=== PATIENT | male | born 1950 | race Caucasian/White ===

== ENCOUNTER → 2018-06-26 15:58 | Outpatient (CLI) | payer MEDICARE, SELFPAY ==
--- NOTE | 2018-06-26 | DI.RAD.S_ITS ---
PROCEDURE: XR CHEST 2V INDICATIONS: RIGHT RIB PAIN POST FALL TECHNIQUE: 2 views of the chest were acquired. COMPARISON: [facility], , CHEST 2 VIEW, 07/15/2009, 14:05. FINDINGS: Surgical changes and devices: None. Lungs and pleura: Mild focal air space opacities are present at the medial left lung base. The lungs are otherwise clear. No pleural effusion or pneumothorax. Mediastinum: Mediastinal contours are normal. Heart size is normal. Bones and chest wall: No suspicious bony abnormalities. Soft tissues appear unremarkable. IMPRESSION: 1. Medial left basilar pulmonary opacities. Differential considerations include aspiration, atelectasis, and infection. 2. No rib fractures visualized; however if there is high clinical suspicion for rib fractures, dedicated rib views may be helpful. Dictated by: Yane Cuello M.D. on 06/26/2018 at 17:08 Approved by: Yane Cuello M.D. on 06/26/2018 at 17:09
== END ==
PROVIDERS: PCP Family Medicine; Visit Provider Family Medicine
DX: R07.81 Pleurodynia (principal)
CPT/HCPCS: 71046

== ENCOUNTER → 2019-01-15 10:51 | Outpatient (CLI) | payer MEDICARE, SELFPAY | PROVIDERS: PCP Family Medicine; Visit Provider Orthopaedic Surgery | DX: Z01.810 Encounter for preprocedural cardiovascular examination (principal) | CPT/HCPCS: 93005 ==

== ENCOUNTER → 2022-04-16 15:30 | Outpatient (CLI) | payer MEDICARE, SELFPAY ==
--- NOTE | 2022-04-16 15:32 | DI.RAD.S_ITS ---
PROCEDURE: XR KNEE RT 3V INDICATIONS: M25.561 TECHNIQUE: Three views of the knee were acquired. COMPARISON: [facility], , KNEE 3V RIGHT, 11/08/2010, 14:22. FINDINGS: Bones: Mild medial compartment joint space loss and mild tricompartment marginal spurring. There is moderate lateral patellofemoral compartment joint space loss and trace lateral subluxation. Soft tissues: Trace suprapatellar joint effusion. No unusual soft tissue calcifications. IMPRESSION: 1. 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 Mild progression since the prior study. Dictated by: Elizabeth Williamson M.D. on 04/16/2022 at 16:30 Approved by: Elizabeth Williamson M.D. on 04/16/2022 at 16:32
== END ==
PROVIDERS: PCP Family Medicine; Referring Provider Family Medicine; Visit Provider Family Medicine
DX: M25.561 Pain in right knee (principal)
CPT/HCPCS: 73562

== ENCOUNTER → 2022-11-01 11:58 | Outpatient (ROUT) | payer MEDICARE, SELFPAY ==
[2022-11-01 12:41] LABS: Influenza A - CEPHEID Flu A NEGATIVE (NEGATIVE); Influenza B - CEPHEID Flu B NEGATIVE (NEGATIVE); Respiratory Syncytial Virus Negative (Negative)
[2022-11-01 12:42] LABS: COVID-19 CEPHEID 4-PLEX PCR Negative (Negative)
== END ==
PROVIDERS: PCP Family Medicine; Visit Provider Family Medicine
DX: R05.9 Cough, unspecified (principal); R50.9 Fever, unspecified; J32.9 Chronic sinusitis, unspecified
CPT/HCPCS: 0241U

== ENCOUNTER → 2022-11-15 11:08 | Outpatient (CLI) | payer MEDICARE, SELFPAY ==
--- NOTE | 2022-11-15 | DI.RAD.S_ITS ---
PROCEDURE: XR CHEST 2V INDICATIONS: Shortness of breath, Cough TECHNIQUE: 2 views of the chest were acquired. COMPARISON: [facility], , CHEST 2 VIEW, 07/15/2009, 14:05. [facility], JEFF, XR CHEST 2V, 06/26/2018, 16:07. FINDINGS: Surgical changes and devices: None. Lungs and pleura: Lungs are clear. No pleural effusions or pneumothorax. Mediastinum: Mediastinal contours are normal. Heart size is normal. Bones and chest wall: No suspicious bony abnormalities. There is a right shoulder arthroplasty. Soft tissues appear unremarkable. IMPRESSION: No acute cardiopulmonary disease. Dictated by: Burak Ramirez M.D. on 11/15/2022 at 14:15 Approved by: Burak Ramirez M.D. on 11/15/2022 at 14:23
== END ==
PROVIDERS: PCP Family Medicine; Referring Provider Family Medicine; Visit Provider Family Medicine
DX: R05.1 Acute cough (principal); R06.02 Shortness of breath
CPT/HCPCS: 71046

== ENCOUNTER → 2024-08-24 10:55 | Outpatient (CLI) | payer MEDICARE, SELFPAY ==
[2024-08-24 11:57] LABS: Add Manual Diff / Slide Review NO; Basophils Absolute Auto 100 /uL (0-100); Basophils Percent Auto 2.5 % (0-2); Eosinophils Absolute Auto 400 /uL (0-450); Eosinophils Percent Auto 7.8 % (2-4); Hematocrit 22.9 % (41-53); Lymphocytes Absolute Auto 800 /uL (1100-4500); Lymphocytes Percent Auto 16.9 % (25-40); Mean Corpuscular HGB Conc 30.6 % (30-36); Mean Corpuscular Hemoglobin 19.6 PG (26-34); Mean Corpuscular Volume 63.9 fL (80-100); Monocytes Absolute Auto 900 /uL (0-900); Monocytes Percent Auto 19.7 % (3-14); Neutrophils Absolute Auto 2400 /uL (1500-7000); Neutrophils Percent Auto 53.1 % (50-75); Platelet Count 125 X10^3/uL (150-400); Red Blood Cell Count 3.59 X10^6/uL (4.5-5.9); Red Cell Distribution Width 23.5 % (11.6-14.8); White Blood Cell Count 4.5 X10^3/uL (4.5-11.0)
[2024-08-24 12:13] LABS: Alanine Aminotransferase 30 IU/L (<50); Albumin 3.8 g/dL (3.5-5.0); Albumin Globulin Ratio 1.2 (1.0-2.8); Alkaline Phosphatase 143 U/L (38-126); Aspartate Aminotransferase 54 IU/L (17-59); BUN Creatinine Ratio 18.9 (6-22); Bilirubin Total 2.4 mg/dL (0.2-1.3); Blood Urea Nitrogen 14 mg/dL (9-20); Carbon Dioxide 21 mmol/L (22-32); Chloride 107 mmol/L (98-107); Estimated Glomerular Filt Rate > 60 mL/min (>60); Globulin 3.2 g/dL (1.7-4.1); Glucose 116 mg/dL (80-110); HEMOLYSIS < 15 (0-50); Potassium 3.8 mmol/L (3.4-5.1); Sodium 138 mmol/L (137-145)
[2024-08-24 13:27] LABS: Anisocytosis 3+
[2024-08-24 13:29] LABS: Microcytosis 2+; Schistocytes 1+; Target Cells 2+
[2024-08-24 14:41] LABS: MRSA (Nasal) PCR NOT DETECTED (Not Detect)
== END ==
PROVIDERS: PCP Family Medicine; Referring Provider Family Medicine; Visit Provider Family Medicine
DX: Z01.811 Encounter for preprocedural respiratory examination (principal); Z13.6 Encounter for screening for cardiovascular disorders; Z22.322 Carrier or suspected carrier of Methicillin resistant Staphylococcus aureus
CPT/HCPCS: 36415; 80053; 85025; 87797

== ENCOUNTER → 2024-09-11 14:42 | Outpatient (CLI) | payer MEDICARE, SELFPAY ==
[2024-09-11 15:41] LABS: Hematocrit 23.3 % (41-53); Mean Corpuscular HGB Conc 29.9 % (30-36); Mean Corpuscular Hemoglobin 19.6 PG (26-34); Mean Corpuscular Volume 65.5 fL (80-100); Platelet Count 147 X10^3/uL (150-400); Red Blood Cell Count 3.55 X10^6/uL (4.5-5.9); Red Cell Distribution Width 24.1 % (11.6-14.8); White Blood Cell Count 4.8 X10^3/uL (4.5-11.0)
[2024-09-11 15:56] LABS: Reticulocyte Count, Percent 1.9 % (0.9-2.6)
[2024-09-11 16:27] LABS: HEMOLYSIS < 15 (0-50); Iron 22 ug/dL (49-181)
[2024-09-11 16:30] LABS: Lactate Dehydrogenase 223 U/L (120-246)
[2024-09-11 16:39] LABS: Percent Iron Saturation 5 % (20-50); Total Iron Binding Capacity 450 ug/dL (261-462); Transferrin 358 mg/dL (206-381)
[2024-09-11 16:42] LABS: Neutrophils Absolute Manual 1968 /uL (3000-5900); Total Cells Counted 100
[2024-09-11 16:43] LABS: Anisocytosis 2+
[2024-09-11 16:46] LABS: Microcytosis 2+; Target Cells 2+
[2024-09-11 17:04] LABS: Ferritin 11 ng/mL (18-464)
[2024-09-13 08:12] LABS: Haptoglobin 66 mg/dL (34-355)
== END ==
LOC: LAB 14:43
PROVIDERS: PCP Family Medicine; Referring Provider Family Medicine; Visit Provider Family Medicine
DX: D50.9 Iron deficiency anemia, unspecified (principal); R17 Unspecified jaundice; Z87.891 Personal history of nicotine dependence
CPT/HCPCS: 36415; 82728; 83010; 83021; 83540; 83550; 83615; 85025; 85045

== ENCOUNTER 2024-10-08 13:01 | Day surgery (SDC) | payer MEDICARE, SELFPAY ==
--- NOTE | 2024-10-08 | PATH_ITS ---
[facility] Accession Number: [id number] No. of containers..05 Tissue . 01 Material submitted: . PART A: duodenum - DUODENUM PART B: stomach - ANTRUM, STOMACH PART C: gastrointestinal site - PROXIMAL GASTRIC MUCOSA PART D: esophagus - DISTAL ESOPHAGUS PART E: colon - SIGMOID POLYPS . 01 Diagnosis: A. DUODENUM: Duodenal mucosa with mild active inflammation. No evidence of celiac disease. See comment. . B. ANTRUM: Gastric mucosa with reactive foveolar hyperplasia. See comment. No Helicobacter pylori organisms identified on H/E slide. No intestinal metaplasia, dysplasia, or malignancy. . C. PROXIMAL GASTRIC MUCOSA: Gastric mucosa with minimal chronic nonspecific inflammation. No Helicobacter pylori organisms identified on H/E slide. No intestinal metaplasia, dysplasia, or malignancy. . D. DISTAL ESOPHAGUS: Squamocolumnar junctional mucosa with goblet cell (Thomson's) metaplasia. No dysplasia or malignancy. See comment. . E. SIGMOID COLON POLYPS: Tubular adenoma. Hyperplastic polyp. [facility] 10/12/2024 1251 Local . 01 Comment: A. The features raise a differential including peptic duodenitis, peptic-induced injury, or idiopathic inflammation, among other possibilities. . B. Foveolar hyperplasia can represent a reactive process due to recurrent mucosal injury. It may also be seen as a polypoid appearance on endoscopy and may represent an early gastric hyperplastic polyp. Clinical correlation is recommended. . D. 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 Correlation with endoscopic appearance is recommended. . 01 Electronically signed: . Sarai Dean MD, Pathologist NPI- [id number] . 01 Gross description: . A. Received in formalin with two identifiers and BX duodenum, are three pool soft tissue fragments, 0.1-0.2 cm in greatest dimension, submitted in A1. B. Received in formalin with two identifiers and antrum stomach, are two pool soft tissue fragments, 0.3 cm each in greatest dimension, submitted in B1. C. Received in formalin with two identifiers and proximal gastric mucosa, is a single pool soft tissue fragment, 0.4 cm in greatest dimension, submitted in C1. D. Received in formalin with two identifiers and distal esophagus, are two pool soft tissue fragments, 0.3 and 0.4 cm in greatest dimension, submitted in D1. E. Received in formalin with two identifiers and sigmoid polyps, are multiple pool to brown soft tissue fragments aggregating to 0.8 x 0.7 x 0.2 cm. Filtered and submitted entirely in E1. ([id number]) /MRV 10/09/2024 1745 Local . 01 Pathologist provided ICD-10: K29.80, K29.70, K29.30, K22.70, D12.5 . 01 CPT . 168213, 261551, 259316, 249433, 974162 Specimen Comment: A courtesy copy of this report has been sent to [phone] Performed at: [address] [facility] [address], [place], [place] [id number] MD Cisco Montes MD Phone: [phone]
[2024-10-08 14:10] VITALS: BP 138/67; PULSE 66; RESP 16; TEMP 37.2; O2SAT 99
[2024-10-08] MEDS: LACTATED RINGERS 1,000 ML 42 ML IV ×2 (14:15→15:29)
--- NOTE | 2024-10-08 14:52 | PM.PREOP ---
Pre-operative Note COVID-19 COVID-19 status: Not tested Interval Note History & Physical reviewed/Exam performed by Physician: Yes Changes to H&P: No ASA Class (for procedural sedation): II
--- NOTE | 2024-10-08 15:25 | SUR.OPER ---
EGD 1508- 1519 COLON STARTED AT 1523
--- NOTE | 2024-10-08 15:48 | PM.OP.EC ---
Operative Date/Time/Diagnoses Date of procedure: 10/08/24 Time of procedure: 15:49 Pre-op diagnosis: Anemia Post-op diagnosis: same Procedure & Clinicians Study performed: EGD and colonoscopy Same procedure as scheduled: Yes Surgeon: Gregory Rachel Procedure Notes Procedure in detail: Surgeon: Gregory Rachel MD Anesthesia: Fermin Mulligan D.O. Procedure in detail: A timeout was performed. A bite blocked was placed and monitors were attached to the patient. The patient was positioned in the left lateral decubitus position. Sedation was administered. Once the patient was sedated the endoscope was inserted through the bite block and passed through the esophagus and stomach and into the duodenum. Duodenum appeared relatively inflamed and we perform biopsies of the proximal duodenum using cold forceps. We then withdrew the scope into the stomach. There was also some mild antritis and we perform biopsies of the antrum using cold forceps. The endoscope was retroflexed and there appeared to be moderate-sized hiatal hernia and the gastric mucosa over the diaphragmatic hiatus appeared rather inflamed and hypertrophied. Biopsies were taken with cold forceps from the gastric mucosa at the level of the diaphragmatic hiatus. The endoscope was straightned and withdrawn into the esophagus. The distance from the diaphragmatic hiatus and the GE junction appeared to be over 10 cm. The distal esophagus demonstrated patchy areas of salmon-colored mucosa and biopsies were taken with cold forceps. EGD findings: Duodenitis, antritis, a hiatal hernia potentially exceeding 10 cm in length with inflamed hypertrophied mucosa at the level of the hiatus and salmon-colored patches of mucosa in the distal esophagus Next we repositioned the patient for a colonoscopy. A digital rectal exam was performed and was normal. The colonoscope was inserted and advanced to the cecum. The appendiceal orifice was identified and photographed. The scope was slowly withdrawn over greater than 6 minutes. There were 2 subcentimeter polyps in the sigmoid colon removed with a cold snare and sent together. Of the polypectomy sites had some persistent bleeding in the so a single sure fire clip was applied with good effect. There was scattered diverticulosis greatest in the sigmoid colon. The scope was retroflexed in the rectum and no other abnormalities were found. Colonoscopy findings: 2 subcentimeter polyps in the sigmoid colon, scattered diverticulosis greatest in the sigmoid colon Total procedural EBL: 10 mL Scope withdrawal time: 14 minutes Sedation minutes: 38 minutes Post-procedure Disposition: PACU
[2024-10-08 15:51] VITALS: BP 109/72; PULSE 67; RESP 25; TEMP 37; O2SAT 98
[2024-10-08 15:56] VITALS: BP 133/76; PULSE 62; RESP 25; O2SAT 97
[2024-10-08 16:01] VITALS: BP 132/75; PULSE 62; RESP 24; TEMP 37; O2SAT 99
[2024-10-08 16:07] VITALS: BP 133/79; PULSE 59; RESP 26; O2SAT 100
== END 2024-10-08 16:22 | disposition home or self-care (01) ==
PROVIDERS: PCP Family Medicine; Referring Provider Family Medicine; Visit Provider Surgery
PROC: 0DJ08ZZ Inspection of Upper Intestinal Tract, Via Natural or Artificial Opening Endoscopic (ICD-10-PCS; CPT 45385; principal; 2024-10-08 14:15)
PROC: 0DJD8ZZ Inspection of Lower Intestinal Tract, Via Natural or Artificial Opening Endoscopic (ICD-10-PCS; CPT 45378; 2024-10-08 14:15)
DX: D12.5 Benign neoplasm of sigmoid colon (principal); D64.9 Anemia, unspecified; Z72.0 Tobacco use; K29.80 Duodenitis without bleeding; K44.9 Diaphragmatic hernia without obstruction or gangrene; K29.50 Unspecified chronic gastritis without bleeding; K57.30 Diverticulosis of large intestine without perforation or abscess without bleeding; K22.70 Barrett's esophagus without dysplasia
CPT/HCPCS: 45385; 43239; J2704

== ENCOUNTER → 2024-10-23 08:39 | Outpatient (CLI) | payer MEDICARE, SELFPAY ==
--- NOTE | 2024-10-23 08:40 | DI.RAD.S_ITS ---
PROCEDURE: FL BARIUM SWALLOW INDICATIONS: anemia, hiatal hernia COMPARISON: None. FINDINGS: Function: There is normal esophageal peristalsis. No elicited gastroesophageal reflux. There is normal transit of a calibrated barium tablet through the esophagus into the stomach. Morphology: Air-contrast images demonstrate normal mucosal morphology. Single contrast views show no esophageal strictures, extrinsic mass effects, or diverticula. Limited images of the stomach demonstrate normal appearance. IMPRESSION: Unremarkable exam. Dictated by: Georgie Hauser M.D. on 10/23/2024 at 11:54 Approved by: Georgie Hauser M.D. on 10/23/2024 at 11:56
== END ==
LOC: RAD 08:40
PROVIDERS: PCP Family Medicine; Referring Provider Surgery; Visit Provider Surgery
DX: D50.9 Iron deficiency anemia, unspecified (principal)
CPT/HCPCS: 74220

== ENCOUNTER → 2024-11-04 10:11 | Outpatient (CLI) | payer MEDICARE, SELFPAY ==
--- NOTE | 2024-11-04 10:12 | DI.CT.S_ITS ---
PROCEDURE: CT ABDOMEN PELVIS W CON INDICATIONS: Anemia TECHNIQUE: After the administration of intravenous contrast, axial sections acquired from the lung bases to the pubic symphysis. Coronal and sagittal reformats were performed. For radiation dose reduction, the following was used: automated exposure control, adjustment of mA and/or kV according to patient size. COMPARISON: None. FINDINGS: Image quality: Diagnostic. Lower Chest: Senescent changes in the lung bases. Cardiomegaly. Extensive periesophageal varices. ABDOMEN: Liver: Cirrhotic liver morphology. Patent portal vein. A few hypoattenuating and hyperattenuating liver lesions are present, which cannot be characterized on a single phase contrast CT. Gallbladder: Cholelithiasis without wall thickening or adjacent fat stranding to suggest acute cholecystitis. Biliary ducts: No biliary dilation. Pancreas: No ductal dilation. Spleen: Size is enlarged. Adrenal Glands: No adrenal nodules. Kidneys and Ureters: No hydronephrosis. No solid mass. No complex renal cystic lesion which requires follow up. Stomach and Bowel: Normal colonic caliber, without significant wall thickening. Colonic diverticulosis without evidence of diverticulitis. No obstructing colonic mass. Peritoneum: No abnormal intraperitoneal fluid. No free air. Ventral Wall: Small umbilical hernia containing fat. Abdominal Nodes: No retroperitoneal or mesenteric adenopathy by size criteria. Vessels: Ectatic infrarenal aorta measuring 2.9 cm. PELVIS: Pelvic Organs: Unremarkable. Bladder: No bladder wall thickening, accounting for underdistention. Pelvic Nodes: No enlarged lymph nodes. Miscellaneous: No inguinal hernias are seen. Bones: No aggressive osseous abnormality. Anterior compression deformity of the T12 vertebral body, without endplate retropulsion. IMPRESSION: No obstructing colonic mass. Cirrhosis. A couple of hypoattenuating liver lesions which need complete characterization with MRI or CT (hepatic mass protocol), as findings are suspicious hepatocellular carcinoma. Ectatic infrarenal aorta measuring 2.9 cm. Recommend 5 year sonographic follow-up per consensus guidelines. Findings of portal hypertension including splenomegaly and portosystemic collaterals. Dictated by: Arnaldo Erickson M.D. on 11/04/2024 at 14:15 Approved by: Arnaldo Erickson M.D. on 11/04/2024 at 14:20
[2024-11-04 10:57] LABS: Estimated Glomerular Filt Rate > 60 mL/min (>60)
== END ==
PROVIDERS: PCP Family Medicine; Referring Provider Surgery; Visit Provider Surgery
DX: D50.9 Iron deficiency anemia, unspecified (principal); K74.60 Unspecified cirrhosis of liver; K76.9 Liver disease, unspecified; I77.819 Aortic ectasia, unspecified site; K76.6 Portal hypertension; R16.1 Splenomegaly, not elsewhere classified
CPT/HCPCS: 74177; 82565; Q9967

== ENCOUNTER → 2024-11-10 10:35 | Outpatient (CLI) | payer MEDICARE, SELFPAY ==
--- NOTE | 2024-11-10 10:36 | DI.CT.S_ITS ---
PROCEDURE: CT ABDOMEN LIVER PROTOCOL INDICATIONS: Abnormal CT TECHNIQUE: 4 phase scanning was performed. Non-contrast 5 mm axial sections acquired from the diaphragm to the iliac crests. Following the administration of intravenous contrast, 5 mm thick arterial-phase, portal venous-phase, and 5-minute delayed phase images were acquired through the liver. 5 mm thick coronal and sagittal reformats were performed. For radiation dose reduction, the following was used: automated exposure control, adjustment of mA and/or kV according to patient size. COMPARISON: [facility], CT, CT ABDOMEN PELVIS W CON, 11/04/2024, 11:48. FINDINGS: Image quality: Diagnostic Lower chest: Basal atelectasis and reticulation, which may represent early fibrosis 7 mm left lower lung nodule (4/74). Periesophageal varices. Coronary calcifications. Liver: Cirrhotic contour. 2.3 cm subcapsular lesion in segment 7 (5/20). There is rim hypervascularity with possible washout. LR-M. 1.3 cm subcapsular lesion in segment 5 (5/34). No hypervascularity. This enhances less than the surrounding parenchyma. LR 3. 1.3 cm hypervascular lesion in segment 4 (3/30). No applicable other features. LR 3. Other subcentimeter hypervascular lesions are also collectively characterizes LR 3. Gallbladder and biliary system: Cholelithiasis, nondilated Pancreas: No ductal dilation Spleen: Borderline enlarged at 14 cm. Adrenals: Left adrenal is obscured by varices. Kidneys: No solid renal mass. No hydronephrosis. Vessels and lymph nodes: Atherosclerotic calcifications borderline abdominal aortic aneurysm at 3.1 cm. The main portal vein appears patent Significant left upper quadrant portal venous varices are present, including fundal varices at the gastric region Bowel and peritoneum: No drainable abscess or ascites. Colonic diverticula. No bowel obstruction. Body wall: Unremarkable Bones: Partially seen left posterior iliac deformity. There are degenerative changes. Similar T12 height loss. IMPRESSION: 2.3 cm subcapsular lesion in segment 7 with rim hypervascularity. This is suspicious but not necessarily specific for HCC. LR-M. CAC-HCC spectrum lesion possible. Other LR 3 lesions are described above. Cholelithiasis. Splenomegaly. Significant portal venous varices. Cirrhotic liver contour. Mild abdominal aortic aneurysm. Dictated by: Sunday Mascorro M.D. on 11/10/2024 at 14:53 Approved by: Sunday Mascorro M.D. on 11/10/2024 at 15:03
== END ==
PROVIDERS: PCP Family Medicine; Referring Provider Surgery; Visit Provider Surgery
DX: R93.5 Abnormal findings on diagnostic imaging of other abdominal regions, including retroperitoneum (principal); I71.40 Abdominal aortic aneurysm, without rupture, unspecified; K80.20 Calculus of gallbladder without cholecystitis without obstruction; R16.1 Splenomegaly, not elsewhere classified; I86.8 Varicose veins of other specified sites; D50.9 Iron deficiency anemia, unspecified
CPT/HCPCS: 74170; Q9967